=== PATIENT | female | born 2000 | race Asian ===

== ENCOUNTER 2022-06-15 14:33 | Emergency (ER) | payer OTHER ==
[~2022-06-15] VITALS: Ht 162.6 cm; Wt 115.3 kg
[2022-06-15 17:14] LABS: BASO # 0.1 10^3/uL (0.0-0.2); BASO % 0.5 % (0.0-1.0); EOS # 0.6 10^3/uL (0.0-0.5); EOS % 4.7 % (0.0-3.0); HEMATOCRIT 41.5 % (36.0-47.0); HEMOGLOBIN 13.7 g/dl (12.0-15.5); LYMPH # 2.2 10^3/uL (1.5-5.0); LYMPH % 18.7 % (24.0-44.0); MEAN CORPUSCULAR HEMOGLOBIN 28.4 pg (27.0-33.0); MEAN CORPUSCULAR VOLUME 86.1 fl (80.0-96.0); MONO # 0.8 10^3/uL (0.0-0.8); MONO % 6.5 % (2.0-8.0); NEUTROPHILS # 8.1 10^3/uL (1.5-8.5); NEUTROPHILS % 69.3 % (36.0-66.0); PLATELET COUNT, AUTOMATED 341 10^3/uL (150-450); RED BLOOD COUNT 4.82 10^6/uL (4.00-5.40); WHITE BLOOD COUNT 11.7 10^3/uL (4.0-10.0)
[2022-06-15 17:41] LABS: ALBUMIN 3.6 G/DL (3.2-5.2); ALKALINE PHOSPHATASE 77 U/L (46-116); ALT/SGPT 38 U/L (7.0-40); AST/SGOT 40 U/L (<34); BILIRUBIN,TOTAL 0.4 MG/DL (0.3-1.2); BLOOD UREA NITROGEN 11 MG/DL (9-23); CALCIUM LEVEL 8.7 MG/DL (8.5-10.1); CARBON DIOXIDE LEVEL 26 MMOL/L (20-31); CHLORIDE LEVEL 102 MMOL/L (98-107); CREATININE FOR GFR 0.59 MG/DL (0.55-1.30); GLOMERULAR FILTRATION RATE > 60.0 (>60); GLUCOSE, FASTING 79 MG/DL (60-100); POTASSIUM SERUM 3.9 MMOL/L (3.5-5.1); SODIUM LEVEL 137 MMOL/L (136-145); TOTAL PROTEIN 7.9 G/DL (5.7-8.2)
[2022-06-15] MEDS ORDERED: LEVOTAB10 PO (19:05)
[2022-06-15] MEDS ORDERED: FLON1SPR NARES (19:05)
[2022-06-15 19:16] VITALS: BP 144/96
== END 2022-06-15 19:18 | disposition home or self-care (01) ==
LOC: M ED 14:33
DX: J45.909 Unspecified asthma, uncomplicated (principal); R09.82 Postnasal drip; Z79.899 Other long term (current) drug therapy

== ENCOUNTER 2022-07-14 00:10 | Emergency (ER) | payer OTHER ==
[~2022-07-14] VITALS: Ht 167.6 cm; Wt 117.0 kg
[~2022-07-14 00:10] MED LIST: FLON1SPR NARES; LEVOTAB10 PO
[2022-07-14] MEDS ORDERED: diazePAM 10MG/2ML SYRINGE IM ONE (05:10)
[2022-07-14] MEDS ORDERED: CYCL5TAB PO (07:00)
[2022-07-14 07:23] VITALS: BP 132/68
== END 2022-07-14 07:18 | disposition home or self-care (01) ==
LOC: M ED 00:10
DX: M62.830 Muscle spasm of back (principal); J45.909 Unspecified asthma, uncomplicated; V49.40XA Driver injured in collision with unspecified motor vehicles in traffic accident, initial encounter; Z79.899 Other long term (current) drug therapy; Z79.02 Long term (current) use of antithrombotics/antiplatelets
CPT/HCPCS: 72072; 72110; 72125; 96372; 99284; J3360

== ENCOUNTER 2022-07-25 06:27 | Emergency (ER) | payer OTHER ==
[~2022-07-25] VITALS: Ht 167.6 cm; Wt 115.9 kg
[~2022-07-25 06:27] MED LIST changes: +CYCL5TAB PO
[2022-07-25] MEDS ORDERED: predniSONE 20 MG TAB PO ONE (07:05)
[2022-07-25] MEDS ORDERED: METH-1165 PO (07:07)
[2022-07-25] MEDS ORDERED: PRED10TA2 PO (07:07)
[2022-07-25 07:50] VITALS: BP 136/90
== END 2022-07-25 07:50 | disposition home or self-care (01) ==
LOC: M ED 06:27
DX: M54.12 Radiculopathy, cervical region (principal); M54.16 Radiculopathy, lumbar region; E28.2 Polycystic ovarian syndrome; J45.909 Unspecified asthma, uncomplicated; Z79.52 Long term (current) use of systemic steroids; Z79.899 Other long term (current) drug therapy
CPT/HCPCS: 99283; J7512

== ENCOUNTER → 2022-08-23 | Outpatient (CLI) | payer OTHER ==
[~2022-08-23] MED LIST changes: +METH-1165 PO; +PRED10TA2 PO
[2022-08-23 08:18] LABS: BASO # 0.1 10^3/uL (0.0-0.2); BASO % 0.4 % (0.0-1.0); EOS # 0.4 10^3/uL (0.0-0.5); EOS % 3.5 % (0.0-3.0); HEMATOCRIT 41.9 % (36.0-47.0); HEMOGLOBIN 13.9 g/dl (12.0-15.5); LYMPH # 2.6 10^3/uL (1.5-5.0); LYMPH % 21.1 % (24.0-44.0); MEAN CORPUSCULAR HEMOGLOBIN 28.4 pg (27.0-33.0); MEAN CORPUSCULAR HGB CONC 33.2 g/dl (32.0-36.5); MEAN CORPUSCULAR VOLUME 85.7 fl (80.0-96.0); MONO # 0.8 10^3/uL (0.0-0.8); MONO % 6.7 % (2.0-8.0); NEUTROPHILS # 8.3 10^3/uL (1.5-8.5); NEUTROPHILS % 67.8 % (36.0-66.0); PLATELET COUNT, AUTOMATED 374 10^3/uL (150-450); RED BLOOD COUNT 4.89 10^6/uL (4.00-5.40); WHITE BLOOD COUNT 12.2 10^3/uL (4.0-10.0)
[2022-08-23 08:46] LABS: ALBUMIN 3.9 G/DL (3.2-5.2); ALKALINE PHOSPHATASE 81 U/L (46-116); ALT/SGPT 41 U/L (7.0-40); AST/SGOT 27 U/L (<34); BILIRUBIN,TOTAL 0.4 MG/DL (0.3-1.2); BLOOD UREA NITROGEN 10 MG/DL (9-23); CALCIUM LEVEL 9.1 MG/DL (8.5-10.1); CARBON DIOXIDE LEVEL 28 MMOL/L (20-31); CHLORIDE LEVEL 103 MMOL/L (98-107); CHOLESTEROL LEVEL 181 MG/DL (<200); CHOLESTEROL RISK RATIO 4.44 (<5); CREATININE FOR GFR 0.66 MG/DL (0.55-1.30); GLOMERULAR FILTRATION RATE > 60.0 (>60); GLUCOSE, FASTING 81 MG/DL (60-100); HDL CHOLESTEROL 40.7 MG/DL (>40); LDL CHOLESTEROL 116.9 MG/DL (<100); NON-HDL-C 140.3 MG/DL; POTASSIUM SERUM 3.8 MMOL/L (3.5-5.1); SODIUM LEVEL 136 MMOL/L (136-145); TOTAL PROTEIN 7.9 G/DL (5.7-8.2); TRIGLYCERIDES LEVEL 117 MG/DL (<150)
[2022-08-23 08:47] LABS: THYROID STIMULATING HORMONE 1.349 uIU/ML (0.55-4.78)
[2022-08-23 08:48] LABS: FOLLICLE STIMULATING HORMONE 6.2 mIU/ML; FREE T4 1.21 NG/DL (0.89-1.76); LUTEINIZING HORMONE 6.4 mIU/ML
[2022-08-23 09:23] LABS: HEMOGLOBIN A1c 5.6 % (4.0-6.0)
[2022-08-24 18:07] LABS: TESTOSTERONE FREE (DIRECT) 5.3 pg/mL (0.0-4.2)
== END ==
LOC: M LAB 07:34
PROVIDERS: ATTEND Registered Nurse
DX: E28.2 Polycystic ovarian syndrome (principal)

== ENCOUNTER → 2022-10-30 | Outpatient (REF) | payer OTHER ==
[2022-10-30 20:13] LABS: GC DNA AMPLIFICATION NEGATIVE (NEGATIVE)
== END ==
LOC: M LAB REF 17:07
PROVIDERS: ATTEND Registered Nurse
DX: Z11.3 Encounter for screening for infections with a predominantly sexual mode of transmission (principal)

== ENCOUNTER → 2022-12-25 | Outpatient (REF) | payer OTHER | LOC: M LAB REF 17:00 | PROVIDERS: ATTEND Nurse Practitioner Family | DX: N76.0 Acute vaginitis (principal); Z30.432 Encounter for removal of intrauterine contraceptive device ==

== ENCOUNTER → 2023-01-28 | Outpatient (REF) ==
[2023-01-28 16:05] LABS: RSV AMPLIFICATION NEGATIVE (NEGATIVE)
== END ==
LOC: M EMP 14:49
PROVIDERS: ATTEND Family Medicine
DX: Z11.52 Encounter for screening for COVID-19 (principal)

== ENCOUNTER → 2023-01-31 | Outpatient (CLI) | payer OTHER | LOC: M WHC 14:12 | PROVIDERS: ATTEND Registered Nurse | DX: R10.2 Pelvic and perineal pain (principal) ==

== ENCOUNTER → 2023-01-31 | Outpatient (CLI) | payer OTHER ==
[2023-01-31 07:10] LABS: BASO # 0.1 10^3/uL (0.0-0.2); BASO % 0.5 % (0.0-1.0); EOS # 0.2 10^3/uL (0.0-0.5); EOS % 1.7 % (0.0-3.0); HEMATOCRIT 41.9 % (36.0-47.0); HEMOGLOBIN 13.7 g/dl (12.0-15.5); LYMPH # 2.6 10^3/uL (1.5-5.0); LYMPH % 20.6 % (24.0-44.0); MEAN CORPUSCULAR HEMOGLOBIN 28.1 pg (27.0-33.0); MEAN CORPUSCULAR HGB CONC 32.7 g/dl (32.0-36.5); MEAN CORPUSCULAR VOLUME 85.9 fl (80.0-96.0); MONO # 0.9 10^3/uL (0.0-0.8); MONO % 7.4 % (2.0-8.0); NEUTROPHILS # 8.8 10^3/uL (1.5-8.5); NEUTROPHILS % 69.6 % (36.0-66.0); PLATELET COUNT, AUTOMATED 359 10^3/uL (150-450); RED BLOOD COUNT 4.88 10^6/uL (4.00-5.40); WHITE BLOOD COUNT 12.7 10^3/uL (4.0-10.0)
[2023-01-31 07:37] LABS: ALKALINE PHOSPHATASE 89 U/L (46-116); ALT/SGPT 38 U/L (7.0-40); AST/SGOT 26 U/L (<34); BILIRUBIN,TOTAL 0.4 MG/DL (0.3-1.2); BLOOD UREA NITROGEN 15 MG/DL (9-23); CALCIUM LEVEL 8.9 MG/DL (8.5-10.1); CARBON DIOXIDE LEVEL 30 MMOL/L (20-31); CHLORIDE LEVEL 103 MMOL/L (98-107); CREATININE FOR GFR 0.74 MG/DL (0.55-1.30); GLOMERULAR FILTRATION RATE > 60.0 (>60); GLUCOSE, FASTING 94 MG/DL (60-100); POTASSIUM SERUM 4.1 MMOL/L (3.5-5.1); SODIUM LEVEL 139 MMOL/L (136-145); TOTAL PROTEIN 8.1 G/DL (5.7-8.2)
[2023-01-31 07:40] LABS: HCG, SERUM QUALITATIVE NEGATIVE (NEGATIVE)
== END ==
LOC: M LAB 06:33
PROVIDERS: ATTEND Registered Nurse
DX: R10.2 Pelvic and perineal pain (principal)

== ENCOUNTER → 2023-04-08 | Outpatient (CLI) | payer OTHER ==
[2023-04-08 07:15] LABS: APPEARANCE, URINE CLEAR (CLEAR); BACTERIA, URINE AUTO NEGATIVE (NEGATIVE); BILIRUBIN, URINE AUTO NEGATIVE (NEGATIVE); BLOOD, URINE BLOOD NEGATIVE (NEGATIVE); COLOR, URINE YELLOW (YELLOW); GLUCOSE, URINE (UA) AUTO NEGATIVE (NEGATIVE); KETONE, URINE AUTO NEGATIVE (NEGATIVE); LEUKOCYTE ESTERASE, URINE AUTO NEGATIVE (NEGATIVE); MUCUS, URINE SMALL (NEGATIVE); NITRITE, URINE AUTO NEGATIVE (NEGATIVE); PROTEIN, URINE AUTO NEGATIVE (NEGATIVE); RBC, URINE AUTO 0 /HPF (0-3); SPECIFIC GRAVITY URINE AUTO 1.029 (1.002-1.035); SQUAMOUS EPITHELIAL CELL UR AU 4 /HPF (0-6); WBC, URINE AUTO 1 /HPF (0-3)
[2023-04-08 07:17] LABS: BASO % 0.3 % (0.0-1.0); EOS # 0.3 10^3/uL (0.0-0.5); EOS % 2.4 % (0.0-3.0); HEMATOCRIT 39.9 % (36.0-47.0); LYMPH # 2.8 10^3/uL (1.5-5.0); LYMPH % 21.7 % (24.0-44.0); MEAN CORPUSCULAR HEMOGLOBIN 28.1 pg (27.0-33.0); MEAN CORPUSCULAR HGB CONC 32.6 g/dl (32.0-36.5); MEAN CORPUSCULAR VOLUME 86.4 fl (80.0-96.0); MONO # 1.2 10^3/uL (0.0-0.8); NEUTROPHILS # 8.6 10^3/uL (1.5-8.5); NEUTROPHILS % 66.3 % (36.0-66.0); PLATELET COUNT, AUTOMATED 360 10^3/uL (150-450); RED BLOOD COUNT 4.62 10^6/uL (4.00-5.40); WHITE BLOOD COUNT 12.9 10^3/uL (4.0-10.0)
[2023-04-08 07:43] LABS: IRON (FE) 24 UG/DL (50-170); TOTAL IRON BINDING CAPACITY 301 UG/DL (250-425)
[2023-04-08 07:44] LABS: CPK CREATINE PHOSPHOKINASE 143 U/L (34-145)
[2023-04-08 07:55] LABS: ALBUMIN 3.7 G/DL (3.2-5.2); ALKALINE PHOSPHATASE 78 U/L (46-116); ALT/SGPT 25 U/L (7.0-40); AST/SGOT 18 U/L (<34); BILIRUBIN,TOTAL 0.2 MG/DL (0.3-1.2); BLOOD UREA NITROGEN 12 MG/DL (9-23); CALCIUM LEVEL 8.8 MG/DL (8.5-10.1); CARBON DIOXIDE LEVEL 30 MMOL/L (20-31); CHLORIDE LEVEL 102 MMOL/L (98-107); CREATININE FOR GFR 0.72 MG/DL (0.55-1.30); FERRITIN 77.7 NG/ML (7.3-270.7); FREE T3 3.4 PG/ML (2.3-4.2); FREE T4 1.29 NG/DL (0.89-1.76); GLOMERULAR FILTRATION RATE > 60.0 (>60); GLUCOSE, FASTING 93 MG/DL (60-100); PHOSPHORUS LEVEL 3.4 MG/DL (2.5-4.9); POTASSIUM SERUM 3.9 MMOL/L (3.5-5.1); SODIUM LEVEL 137 MMOL/L (136-145); THYROID PEROXIDASE ANTIBODY < 28.0 U/ML (<60.0); TOTAL 25(OH) VITAMIN D 14.7 NG/ML (20.0-100.0); TOTAL PROTEIN 7.7 G/DL (5.7-8.2)
== END ==
LOC: M LAB 06:27
PROVIDERS: ATTEND Nurse Practitioner Family
DX: R53.83 Other fatigue (principal)

== ENCOUNTER 2023-04-16 08:27 | Emergency (ER) | payer OTHER ==
[~2023-04-16] VITALS: Ht 170.2 cm; Wt 105.0 kg
[2023-04-16] MEDS ORDERED: MULT1TAB8 PO (08:50)
[2023-04-16] MEDS ORDERED: ADDE1TAB14 PO (08:50)
[2023-04-16 09:53] LABS: RSV AMPLIFICATION NEGATIVE (NEGATIVE)
[2023-04-16] MEDS ORDERED: ONDANSETRON 4MG 2ML VIAL IV ONE (11:35)
[2023-04-16] MEDS ORDERED: NS 1,000 ML IV ONE (11:35)
[2023-04-16] MEDS ORDERED: KETOROLAC 30 MG/ML 1ML VIAL IV ONE (11:35)
[2023-04-16 12:30] LABS: BASO % 0.3 % (0.0-1.0); EOS # 0.1 10^3/uL (0.0-0.5); HEMATOCRIT 40.4 % (36.0-47.0); HEMOGLOBIN 13.2 g/dl (12.0-15.5); LYMPH # 2.3 10^3/uL (1.5-5.0); LYMPH % 18.1 % (24.0-44.0); MEAN CORPUSCULAR HGB CONC 32.7 g/dl (32.0-36.5); MEAN CORPUSCULAR VOLUME 85.6 fl (80.0-96.0); MONO # 1.1 10^3/uL (0.0-0.8); MONO % 8.4 % (2.0-8.0); NEUTROPHILS # 9.1 10^3/uL (1.5-8.5); PLATELET COUNT, AUTOMATED 334 10^3/uL (150-450); RED BLOOD COUNT 4.72 10^6/uL (4.00-5.40); WHITE BLOOD COUNT 12.6 10^3/uL (4.0-10.0)
[2023-04-16] MEDS ORDERED: ISOVUE-370 76% 100ML VIAL As Ordered ONE (12:37)
[2023-04-16 12:42] LABS: INR 1.27; PROTHROMBIN TIME 15.5 SECONDS (12.5-14.5)
[2023-04-16 12:45] LABS: ALBUMIN 3.8 G/DL (3.2-5.2); BILIRUBIN,DIRECT 0.2 MG/DL (<0.4); BILIRUBIN,TOTAL 0.6 MG/DL (0.3-1.2)
[2023-04-16 14:52] VITALS: BP 101/65; TEMP 97.8; O2SAT 97
== END 2023-04-16 14:55 | disposition home or self-care (01) ==
LOC: M ED 08:27
DX: K62.5 Hemorrhage of anus and rectum (principal); J45.909 Unspecified asthma, uncomplicated; F90.9 Attention-deficit hyperactivity disorder, unspecified type; Z79.810 Long term (current) use of selective estrogen receptor modulators (SERMs); Z79.899 Other long term (current) drug therapy
CPT/HCPCS: 74177; 80047; 80076; 81001; 83690; 84702; 85025; 85610; 85730; 86850; 86900; 86901; 87086; 87631; 96361; 96374; 96375; 99284; J1885; J2405; Q9967

== ENCOUNTER → 2023-04-17 | Outpatient (REF) | payer OTHER ==
[~2023-04-17] MED LIST changes: +ADDE1TAB14 PO; +MULT1TAB8 PO
== END ==
LOC: M LAB REF 12:13
PROVIDERS: ATTEND Registered Nurse
DX: R19.7 Diarrhea, unspecified (principal)

== ENCOUNTER → 2023-04-18 | Outpatient (CLI) | payer OTHER ==
[2023-04-19 13:08] LABS: TISSUE TRANSGLUTAMINASE IgA <2 U/mL (0-3); TISSUE TRANSGLUTAMINASE IgG 2 U/mL (0-5)
== END ==
LOC: M LAB 11:31
PROVIDERS: ATTEND Registered Nurse
DX: R19.7 Diarrhea, unspecified (principal)

== ENCOUNTER → 2023-04-23 | Outpatient (REF) | LOC: M EMP 09:58 | PROVIDERS: ATTEND Family Medicine | DX: Z11.52 Encounter for screening for COVID-19 (principal) ==

== ENCOUNTER → 2023-06-12 | Outpatient (CLI) | payer OTHER ==
[2023-06-12 16:37] LABS: HIV 1&2 SCREEN NEGATIVE (NEGATIVE)
[2023-06-12 16:46] LABS: HEPATITIS C VIRUS ABY INDEX 0.05 INDEX (<0.8)
[2023-06-12 16:47] LABS: HEPATITIS B CORE ANTIBODY IGM NEGATIVE (NEGATIVE)
== END ==
LOC: M PLALAB 14:42
PROVIDERS: ATTEND Nurse Practitioner Family
DX: Z12.4 Encounter for screening for malignant neoplasm of cervix (principal); Z11.3 Encounter for screening for infections with a predominantly sexual mode of transmission
CPT/HCPCS: 36415; 86705; 86780; 86803; 87340; 87389; 87624; G0123

== ENCOUNTER → 2023-08-22 | Outpatient (CLI) | payer OTHER ==
[~2023-08-22] MED LIST changes: +ADDE10CA3 PO; +FERR325T3 PO; +INUL2TAB PO; +PROBCAP14 PO; +VITA500045 PO
[2023-08-22 09:46] LABS: BASO # 0.1 10^3/uL (0.0-0.2); BASO % 0.6 % (0.0-1.0); EOS # 0.3 10^3/uL (0.0-0.5); HEMATOCRIT 38.7 % (36.0-47.0); HEMOGLOBIN 12.8 g/dl (12.0-15.5); LYMPH # 2.9 10^3/uL (1.5-5.0); LYMPH % 25.8 % (24.0-44.0); MEAN CORPUSCULAR HGB CONC 33.1 g/dl (32.0-36.5); MEAN CORPUSCULAR VOLUME 87.6 fl (80.0-96.0); MONO # 0.9 10^3/uL (0.0-0.8); MONO % 7.7 % (2.0-8.0); NEUTROPHILS # 7.1 10^3/uL (1.5-8.5); NEUTROPHILS % 62.7 % (36.0-66.0); PLATELET COUNT, AUTOMATED 337 10^3/uL (150-450); RED BLOOD COUNT 4.42 10^6/uL (4.00-5.40); WHITE BLOOD COUNT 11.4 10^3/uL (4.0-10.0)
[2023-08-22 10:08] LABS: ALBUMIN 3.7 G/DL (3.2-5.2); ALKALINE PHOSPHATASE 70 U/L (46-116); ALT/SGPT 23 U/L (7.0-40); AST/SGOT 22 U/L (<34); BILIRUBIN,TOTAL 0.4 MG/DL (0.3-1.2); BLOOD UREA NITROGEN 12 MG/DL (9-23); CALCIUM LEVEL 8.5 MG/DL (8.5-10.1); CARBON DIOXIDE LEVEL 29 MMOL/L (20-31); CHLORIDE LEVEL 105 MMOL/L (98-107); CREATININE FOR GFR 0.72 MG/DL (0.55-1.30); GLOMERULAR FILTRATION RATE > 60.0 (>60); GLUCOSE, FASTING 88 MG/DL (60-100); POTASSIUM SERUM 4.3 MMOL/L (3.5-5.1); SODIUM LEVEL 138 MMOL/L (136-145); TOTAL PROTEIN 7.2 G/DL (5.7-8.2)
== END ==
LOC: M LAB 08:49
PROVIDERS: ATTEND Registered Nurse
DX: R19.7 Diarrhea, unspecified (principal)

== ENCOUNTER 2023-08-23 07:08 | Emergency (ER) | payer OTHER ==
[~2023-08-23] VITALS: Ht 170.2 cm; Wt 104.5 kg
[~2023-08-23 07:08] MED LIST changes: -ADDE10CA3 PO; -FERR325T3 PO; -INUL2TAB PO; -PROBCAP14 PO; -VITA500045 PO
[2023-08-23 07:58] LABS: BASO # 0.1 10^3/uL (0.0-0.2); BASO % 0.5 % (0.0-1.0); EOS # 0.2 10^3/uL (0.0-0.5); HEMATOCRIT 40.3 % (36.0-47.0); HEMOGLOBIN 13.3 g/dl (12.0-15.5); LYMPH # 2.8 10^3/uL (1.5-5.0); LYMPH % 24.8 % (24.0-44.0); MEAN CORPUSCULAR HEMOGLOBIN 28.3 pg (27.0-33.0); MEAN CORPUSCULAR VOLUME 85.7 fl (80.0-96.0); MONO # 0.9 10^3/uL (0.0-0.8); MONO % 7.5 % (2.0-8.0); NEUTROPHILS # 7.4 10^3/uL (1.5-8.5); PLATELET COUNT, AUTOMATED 348 10^3/uL (150-450); WHITE BLOOD COUNT 11.3 10^3/uL (4.0-10.0)
[2023-08-23 08:21] LABS: BLOOD UREA NITROGEN 12 MG/DL (9-23); CARBON DIOXIDE LEVEL 28 MMOL/L (20-31); CHLORIDE LEVEL 104 MMOL/L (98-107); CREATININE FOR GFR 0.73 MG/DL (0.55-1.30); GLOMERULAR FILTRATION RATE > 60.0 (>60); GLUCOSE, FASTING 94 MG/DL (60-100); POTASSIUM SERUM 4.1 MMOL/L (3.5-5.1); SODIUM LEVEL 138 MMOL/L (136-145)
[2023-08-23 08:23] LABS: HCG, SERUM QUALITATIVE NEGATIVE (NEGATIVE); THYROID STIMULATING HORMONE 2.327 uIU/ML (0.55-4.78)
[2023-08-23] MEDS: KETOROLAC 30 MG/ML 1ML VIAL IV ONE (08:42)
[2023-08-23] MEDS: NS 1,000 ML IV ONE (08:53)
[2023-08-23 09:04] LABS: MAGNESIUM LEVEL 1.6 MG/DL (1.8-2.4)
[2023-08-23] MEDS ORDERED: INUL2TAB PO (09:16)
[2023-08-23] MEDS ORDERED: ADDE10CA3 PO (09:16)
[2023-08-23] MEDS ORDERED: VITA500045 PO (09:16)
[2023-08-23] MEDS ORDERED: FERR325T3 PO (09:16)
[2023-08-23] MEDS ORDERED: PROBCAP14 PO (09:16)
[2023-08-23] MEDS ORDERED: HOME MED LIST COMPLETE! XX SCH (09:20)
[2023-08-23] MEDS: MAGNESIUM OXIDE 400MG TAB (MAG-OX) PO ONE (09:52)
[2023-08-23 11:59] VITALS: BP 140/77; TEMP 97.2; O2SAT 98
== END 2023-08-23 12:02 | disposition home or self-care (01) ==
LOC: M ED 07:08
DX: R55 Syncope and collapse (principal); F90.9 Attention-deficit hyperactivity disorder, unspecified type; D64.9 Anemia, unspecified; J45.909 Unspecified asthma, uncomplicated; E28.2 Polycystic ovarian syndrome
CPT/HCPCS: 80048; 83735; 84443; 84703; 85025; 93005; 94760; 96374; 99284; J1885

== ENCOUNTER 2023-09-03 18:27 | Emergency (ER) | payer OTHER ==
[~2023-09-03] VITALS: Ht 170.2 cm; Wt 104.2 kg
[~2023-09-03 18:27] MED LIST changes: +ADDE10CA3 PO; +FERR325T3 PO; +INUL2TAB PO; +PROBCAP14 PO; +VITA500045 PO
[2023-09-03 22:33] VITALS: BP 130/92; TEMP 96.9; O2SAT 99
== END 2023-09-03 22:42 | disposition home or self-care (01) ==
LOC: M ED 18:27
DX: S90.31XA Contusion of right foot, initial encounter (principal); W20.8XXA Other cause of strike by thrown, projected or falling object, initial encounter; Y92.410 Unspecified street and highway as the place of occurrence of the external cause; Y93.9 Activity, unspecified; Y99.9 Unspecified external cause status; Z79.899 Other long term (current) drug therapy

== ENCOUNTER 2023-10-15 00:31 | Emergency (ER) | payer OTHER ==
[~2023-10-15] VITALS: Ht 167.6 cm; Wt 106.9 kg
[2023-10-15 02:49] VITALS: BP 142/93; TEMP 98.5; O2SAT 99
[2023-10-15] MEDS: ONDANSETRON 4MG ORAL DISINTEGRATING TAB PO ONE (05:56)
== END 2023-10-15 06:45 | disposition home or self-care (01) ==
LOC: M ED 00:31
DX: H61.23 Impacted cerumen, bilateral (principal); F10.10 Alcohol abuse, uncomplicated; E28.2 Polycystic ovarian syndrome; Z79.899 Other long term (current) drug therapy

== ENCOUNTER → 2024-01-14 | Outpatient (CLI) | payer OTHER | LOC: M RAD 16:13 | PROVIDERS: ATTEND Registered Nurse | DX: S06.0X0A Concussion without loss of consciousness, initial encounter (principal); X58.XXXA Exposure to other specified factors, initial encounter; Y92.9 Unspecified place or not applicable ==

== ENCOUNTER → 2024-01-31 | Outpatient (CLI) | payer OTHER ==
[2024-01-31 17:24] LABS: BASO # 0.1 10^3/uL (0.0-0.2); BASO % 0.7 % (0.0-1.0); EOS # 0.4 10^3/uL (0.0-0.5); EOS % 3.8 % (0.0-3.0); HEMATOCRIT 39.6 % (36.0-47.0); HEMOGLOBIN 13.1 g/dl (12.0-15.5); LYMPH # 2.4 10^3/uL (1.5-5.0); LYMPH % 22.9 % (24.0-44.0); MEAN CORPUSCULAR HEMOGLOBIN 28.7 pg (27.0-33.0); MEAN CORPUSCULAR HGB CONC 33.1 g/dl (32.0-36.5); MEAN CORPUSCULAR VOLUME 86.8 fl (80.0-96.0); MONO # 0.7 10^3/uL (0.0-0.8); MONO % 6.8 % (2.0-8.0); NEUTROPHILS # 6.9 10^3/uL (1.5-8.5); NEUTROPHILS % 65.5 % (36.0-66.0); PLATELET COUNT, AUTOMATED 345 10^3/uL (150-450); RED BLOOD COUNT 4.56 10^6/uL (4.00-5.40); WHITE BLOOD COUNT 10.5 10^3/uL (4.0-10.0)
[2024-01-31 18:00] LABS: IRON (FE) 59 UG/DL (50-170); PERCENT SATURATION 19.8 % (13.2-45.0); TOTAL IRON BINDING CAPACITY 298 UG/DL (250-425)
[2024-01-31 18:02] LABS: FERRITIN 76.8 NG/ML (7.3-270.7); FOLATE > 24.0 NG/ML (>5.4); TOTAL 25(OH) VITAMIN D 32.4 NG/ML (20.0-100.0)
[2024-01-31 18:03] LABS: VITAMIN B12 LEVEL 1251 PG/ML (211-911)
== END ==
LOC: M LAB 16:30
PROVIDERS: ATTEND Registered Nurse
DX: E61.1 Iron deficiency (principal); E55.9 Vitamin D deficiency, unspecified

== ENCOUNTER 2024-02-23 14:20 | Emergency (ER) | payer OTHER ==
[~2024-02-23] VITALS: Ht 167.6 cm; Wt 105.9 kg
[2024-02-23] MEDS ORDERED: ATIV1TAB10 (14:36)
[2024-02-23] MEDS ORDERED: CELE0.09 (14:36)
[2024-02-23] MEDS ORDERED: METH4PACK (14:36)
[2024-02-23] MEDS: ACETAMINOPHEN 500 MG TAB PO ONE (15:40)
[2024-02-23] MEDS: KETOROLAC 30 MG/ML 1ML VIAL IM ONE (15:40)
[2024-02-23 16:23] VITALS: BP 118/56; O2SAT 99
[2024-02-23] MEDS: GABAPENTIN 100 MG CAP PO ONE (16:29)
[2024-02-23] MEDS: LIDOCAINE 5% (LIDODERM) PATCH TD ONE (16:30)
[2024-02-23] MEDS ORDERED: GABA-1171 PO (16:45)
[2024-02-23 16:53] VITALS: TEMP 98.1
== END 2024-02-23 16:54 | disposition home or self-care (01) ==
LOC: M ED 14:20
DX: M51.27 Other intervertebral disc displacement, lumbosacral region (principal); M54.17 Radiculopathy, lumbosacral region; F90.9 Attention-deficit hyperactivity disorder, unspecified type; F17.200 Nicotine dependence, unspecified, uncomplicated; F12.10 Cannabis abuse, uncomplicated; Z79.899 Other long term (current) drug therapy
CPT/HCPCS: 96372; 99283; J1885

== ENCOUNTER → 2024-05-20 | Outpatient (CLI) | payer OTHER ==
[~2024-05-20] MED LIST changes: +ATIV1TAB10; +CELE0.09; -CYCL5TAB PO; +CYCL5TAB4 PO; +GABA-1171 PO; +METH4PACK
[2024-05-20 09:47] LABS: HCG, SERUM QUALITATIVE NEGATIVE (NEGATIVE)
== END ==
LOC: M LAB 08:50
PROVIDERS: ATTEND Nurse Practitioner Family
DX: N91.1 Secondary amenorrhea (principal)

== ENCOUNTER → 2024-06-23 | Outpatient (CLI) | payer OTHER ==
[2024-06-23 15:30] LABS: BASO # 0.1 10^3/uL (0.0-0.2); BASO % 0.7 % (0.0-1.0); EOS # 0.6 10^3/uL (0.0-0.5); EOS % 7.9 % (0.0-3.0); HEMATOCRIT 38.8 % (36.0-47.0); HEMOGLOBIN 12.9 g/dl (12.0-15.5); LYMPH # 1.9 10^3/uL (1.5-5.0); LYMPH % 24.9 % (24.0-44.0); MEAN CORPUSCULAR HEMOGLOBIN 29.3 pg (27.0-33.0); MEAN CORPUSCULAR HGB CONC 33.2 g/dl (32.0-36.5); MEAN CORPUSCULAR VOLUME 88.2 fl (80.0-96.0); MONO # 0.9 10^3/uL (0.0-0.8); NEUTROPHILS # 4.1 10^3/uL (1.5-8.5); NEUTROPHILS % 54.4 % (36.0-66.0); PLATELET COUNT, AUTOMATED 314 10^3/uL (150-450); WHITE BLOOD COUNT 7.6 10^3/uL (4.0-10.0)
[2024-06-23 16:06] LABS: ALBUMIN 3.5 G/DL (3.2-5.2); ALKALINE PHOSPHATASE 62 U/L (35-104); ALT/SGPT 26 U/L (7.0-40); AST/SGOT 22 U/L (<34); BILIRUBIN,TOTAL 0.2 MG/DL (0.3-1.2); BLOOD UREA NITROGEN 12 MG/DL (9-23); CALCIUM LEVEL 8.6 MG/DL (8.5-10.1); CARBON DIOXIDE LEVEL 29 MMOL/L (20-31); CHLORIDE LEVEL 107 MMOL/L (98-107); CREATININE FOR GFR 0.78 MG/DL (0.55-1.30); GLOMERULAR FILTRATION RATE > 60.0 (>60); GLUCOSE, FASTING 92 MG/DL (60-100); POTASSIUM SERUM 4.4 MMOL/L (3.5-5.1); SODIUM LEVEL 142 MMOL/L (136-145); TOTAL PROTEIN 7.1 G/DL (5.7-8.2)
== END ==
LOC: M LAB 14:25
PROVIDERS: ATTEND Nurse Practitioner Family
DX: J06.9 Acute upper respiratory infection, unspecified (principal)

== ENCOUNTER 2024-09-05 11:31 | Emergency (ER) | payer OTHER ==
[~2024-09-05] VITALS: Ht 170.2 cm; Wt 106.3 kg
[2024-09-05 12:08] LABS: BASO # 0.1 10^3/uL (0.0-0.2); BASO % 0.6 % (0.0-1.0); EOS # 0.4 10^3/uL (0.0-0.5); EOS % 4.2 % (0.0-3.0); LYMPH # 1.7 10^3/uL (1.5-5.0); LYMPH % 19.6 % (24.0-44.0); MEAN CORPUSCULAR HEMOGLOBIN 28.9 pg (27.0-33.0); MEAN CORPUSCULAR HGB CONC 33.3 g/dl (32.0-36.5); MEAN CORPUSCULAR VOLUME 86.8 fl (80.0-96.0); MONO # 0.9 10^3/uL (0.0-0.8); NEUTROPHILS # 5.6 10^3/uL (1.5-8.5); NEUTROPHILS % 65.4 % (36.0-66.0); PLATELET COUNT, AUTOMATED 318 10^3/uL (150-450); RED BLOOD COUNT 4.84 10^6/uL (4.00-5.40); WHITE BLOOD COUNT 8.6 10^3/uL (4.0-10.0)
[2024-09-05 12:32] LABS: LIPASE 29 U/L (12-53)
[2024-09-05 12:34] LABS: ALBUMIN 3.7 G/DL (3.2-5.2); ALKALINE PHOSPHATASE 67 U/L (35-104); ALT/SGPT 25 U/L (7.0-40); AST/SGOT 20 U/L (<34); BILIRUBIN,DIRECT < 0.1 MG/DL (<0.4); BILIRUBIN,TOTAL 0.3 MG/DL (0.3-1.2); BLOOD UREA NITROGEN 13 MG/DL (9-23); CALCIUM LEVEL 8.7 MG/DL (8.5-10.1); CARBON DIOXIDE LEVEL 28 MMOL/L (20-31); CHLORIDE LEVEL 104 MMOL/L (98-107); CREATININE FOR GFR 0.82 MG/DL (0.55-1.30); GLOMERULAR FILTRATION RATE > 90.0 (>60); GLUCOSE, FASTING 93 MG/DL (60-100); POTASSIUM SERUM 4.2 MMOL/L (3.5-5.1); SODIUM LEVEL 139 MMOL/L (136-145); TOTAL PROTEIN 7.5 G/DL (5.7-8.2)
[2024-09-05] MEDS: KETOROLAC 30 MG/ML 1ML VIAL IV ONE (12:40)
[2024-09-05] MEDS: ONDANSETRON 4MG 2ML VIAL IV ONE (12:40)
[2024-09-05 13:12] LABS: HCG, SERUM QUALITATIVE NEGATIVE (NEGATIVE)
[2024-09-05] MEDS ORDERED: ISOVUE-370 76% 100ML VIAL As Ordered ONE (13:16)
[2024-09-05] MEDS: NS 500 ML IV ONE (14:20)
[2024-09-05 14:39] VITALS: BP 120/67; TEMP 97.4
[2024-09-05 15:28] VITALS: O2SAT 98
[2024-09-05] MEDS: MORPHINE 4 MG/ML 1ML VIAL IV ONE (15:28)
[2024-09-05] MEDS: METOCLOPRAMIDE INJ 10MG/2ML VIAL IV ONE (15:28)
[2024-09-05] MEDS ORDERED: ONDA-282 PO (17:06)
[2024-09-05] MEDS ORDERED: PRED20TA PO (17:06)
== END 2024-09-05 17:54 | disposition home or self-care (01) ==
LOC: M ED 11:31
DX: K51.90 Ulcerative colitis, unspecified, without complications (principal); R11.2 Nausea with vomiting, unspecified; J45.909 Unspecified asthma, uncomplicated; E28.2 Polycystic ovarian syndrome; F17.200 Nicotine dependence, unspecified, uncomplicated; Z79.899 Other long term (current) drug therapy; Z79.83 Long term (current) use of bisphosphonates; Z79.52 Long term (current) use of systemic steroids
CPT/HCPCS: 36415; 74177; 80048; 80076; 83690; 84703; 85025; 87486; 87581; 87633; 87798; 96374; 96375; 99284; J1885; J2405; J2765; Q9967

== ENCOUNTER → 2025-02-15 | Outpatient (CLI) | payer OTHER ==
[~2025-02-15] MED LIST changes: +ERGO125013 PO; +ONDA-282 PO; +PRED20TA PO; +SUCR1SS PO; -VITA500045 PO
[2025-02-15 17:26] LABS: BASO # 0.1 10^3/uL (0.0-0.2); BASO % 0.6 % (0.0-1.0); EOS # 0.5 10^3/uL (0.0-0.5); EOS % 3.9 % (0.0-3.0); LYMPH # 2.3 10^3/uL (1.5-5.0); LYMPH % 17.1 % (24.0-44.0); MONO # 0.9 10^3/uL (0.0-0.8); MONO % 6.6 % (2.0-8.0); NEUTROPHILS # 9.5 10^3/uL (1.5-8.5); NEUTROPHILS % 71.5 % (36.0-66.0); PLATELET COUNT, AUTOMATED 333 10^3/uL (150-450)
[2025-02-15 18:15] LABS: ALT/SGPT 20 U/L (7.0-40); AST/SGOT 23 U/L (<34); CALCIUM LEVEL 8.9 MG/DL (8.5-10.1); CARBON DIOXIDE LEVEL 25 MMOL/L (20-31); CHLORIDE LEVEL 103 MMOL/L (98-107); CREATININE FOR GFR 0.74 MG/DL (0.55-1.30); GLOMERULAR FILTRATION RATE > 90.0 (>60); IRON (FE) 43 UG/DL (50-170); PERCENT SATURATION 14.7 % (13.2-45.0); POTASSIUM SERUM 4.1 MMOL/L (3.5-5.1); SODIUM LEVEL 138 MMOL/L (136-145)
[2025-02-15 18:17] LABS: TOTAL 25(OH) VITAMIN D 30.2 NG/ML (20.0-100.0)
[2025-02-15 18:22] LABS: HCG, SERUM QUALITATIVE POSITIVE (NEGATIVE)
== END ==
LOC: M LAB 15:37
PROVIDERS: ATTEND Registered Nurse
DX: E55.9 Vitamin D deficiency, unspecified (principal); E61.1 Iron deficiency; N91.2 Amenorrhea, unspecified

== ENCOUNTER → 2025-02-26 | Outpatient (CLI) | payer OTHER | LOC: M PLALAB 11:48 | PROVIDERS: ATTEND Advanced Practice Midwife | DX: O20.9 Hemorrhage in early pregnancy, unspecified (principal) ==

== ENCOUNTER 2025-03-03 16:20 | Day surgery (SDC) | payer OTHER ==
[~2025-03-03] VITALS: Ht 165.1 cm; Wt 101.6 kg
[2025-03-03 17:18] LABS: BASO # 0.1 10^3/uL (0.0-0.2); BASO % 0.8 % (0.0-1.0); EOS # 0.4 10^3/uL (0.0-0.5); EOS % 4.4 % (0.0-3.0); LYMPH # 2.4 10^3/uL (1.5-5.0); LYMPH % 26.4 % (24.0-44.0); MONO # 0.6 10^3/uL (0.0-0.8); MONO % 7.2 % (2.0-8.0); NEUTROPHILS # 5.5 10^3/uL (1.5-8.5); NEUTROPHILS % 60.9 % (36.0-66.0); PLATELET COUNT, AUTOMATED 353 10^3/uL (150-450)
[2025-03-03 17:39] LABS: CALCIUM LEVEL 8.4 MG/DL (8.5-10.1); CARBON DIOXIDE LEVEL 25 MMOL/L (20-31); CHLORIDE LEVEL 106 MMOL/L (98-107); CREATININE FOR GFR 0.77 MG/DL (0.55-1.30); GLOMERULAR FILTRATION RATE > 90.0 (>60); POTASSIUM SERUM 4.0 MMOL/L (3.5-5.1); SODIUM LEVEL 141 MMOL/L (136-145)
[2025-03-03 17:40] LABS: HCG, SERUM QUANTITATIVE 57.4 MIU/ML (<4.2)
[2025-03-03] MEDS: NS (Normal Saline) 0.9% 1,000 ML IV ONE (18:44)
[2025-03-03] MEDS: ACETAMINOPHEN *IV* 1,000 MG in IV 1 EA IV ONE (18:44)
[2025-03-03] MEDS: ONDANSETRON 4MG/2ML VIAL IV ONE (18:44)
[2025-03-03 20:24] LABS: KETONE, URINE AUTO RFX TRACE mg/dL (NEGATIVE); LEUKOCYTE ESTERASE UR AUTO RFX NEGATIVE (NEGATIVE); NITRITE, URINE AUTO RFX NEGATIVE (NEGATIVE); RBC, URINE AUTO RFX 1 /HPF (0-3); SQUAM EPITHELIAL CELL UR AURFX 5 /HPF (0-6); WBC, URINE AUTO RFX 1 /HPF (0-3)
[2025-03-03] MEDS ORDERED: ROCURONIUM BROMIDE 50MG/5ML VIAL As Ordered ONE (21:16)
[2025-03-03] MEDS ORDERED: LIDOCAINE 2% 100 MG/5 ML SDV (FOR ANES.) As Ordered ONE (21:16)
[2025-03-03] MEDS ORDERED: dexAMETHasone 4 MG/ML 1 ML VIAL As Ordered ONE (21:16)
[2025-03-03] MEDS ORDERED: ACETAMINOPHEN 1000MG/100ML IV BAG As Ordered ONE (21:16)
[2025-03-03] MEDS ORDERED: KETOROLAC 30 MG/ML 1 ML VIAL As Ordered ONE (21:16)
[2025-03-03] MEDS ORDERED: ONDANSETRON 4MG/2ML VIAL As Ordered ONE (21:16)
[2025-03-03] MEDS ORDERED: MIDAZOLAM INJ 2 MG/2 ML VIAL As Ordered ONE (21:16)
[2025-03-03] MEDS ORDERED: ADDE25CA PO (21:20)
[2025-03-03] MEDS ORDERED: MIDOTAB11 PO (21:20)
[2025-03-03] MEDS ORDERED: [UNRECOGNIZED DRUG - CODE] PO (21:20)
[2025-03-03] MEDS ORDERED: CHOL10007 PO (21:20)
[2025-03-03] MEDS ORDERED: HOME MED LIST COMPLETE! XX SCH (21:20)
[2025-03-03] MEDS ORDERED: SUGAMMADEX SODIUM 500 MG/5 ML VIAL As Ordered ONE (21:56)
[2025-03-03] MEDS: LR 1,000 ML IV SCH (22:25)
[2025-03-03] MEDS: ACETAMINOPHEN 500 MG TAB PO ONE (22:30)
[2025-03-03] MEDS: DOXYCYCLINE HYCLATE 100 MG TABLET PO ONE (22:41)
[2025-03-03 23:10] VITALS: BP 140/66; TEMP 97.6; O2SAT 97
[2025-03-03 23:40] VITALS: BP 128/77; TEMP 98.3; O2SAT 98
[2025-03-04 00:40] VITALS: BP 121/75; TEMP 97.7; O2SAT 97
[2025-03-04 01:40] VITALS: BP 105/61; TEMP 98.1; O2SAT 97
[2025-03-04 02:40] VITALS: BP 110/70; TEMP 97.3; O2SAT 97
[2025-03-04 03:40] VITALS: BP 115/62; TEMP 98.5; O2SAT 96
[2025-03-04 05:48] VITALS: BP 125/61; TEMP 97.7; O2SAT 97
[2025-03-04] MEDS ORDERED: ISOVUE-370 76% 100 ML VIAL As Ordered ONE (06:26)
[2025-03-04 07:06] LABS: BASO # 0.0 10^3/uL (0.0-0.2); BASO % 0.1 % (0.0-1.0); EOS # 0.0 10^3/uL (0.0-0.5); EOS % 0.0 % (0.0-3.0); LYMPH # 1.1 10^3/uL (1.5-5.0); LYMPH % 13.1 % (24.0-44.0); MONO # 0.2 10^3/uL (0.0-0.8); MONO % 2.4 % (2.0-8.0); NEUTROPHILS # 7.1 10^3/uL (1.5-8.5); NEUTROPHILS % 84.2 % (36.0-66.0); PLATELET COUNT, AUTOMATED 315 10^3/uL (150-450)
[2025-03-04 07:36] LABS: ALT/SGPT 14 U/L (7.0-40); AST/SGOT 18 U/L (<34); CALCIUM LEVEL 7.9 MG/DL (8.5-10.1); CARBON DIOXIDE LEVEL 22 MMOL/L (20-31); CHLORIDE LEVEL 106 MMOL/L (98-107); CREATININE FOR GFR 0.68 MG/DL (0.55-1.30); GLOMERULAR FILTRATION RATE > 90.0 (>60); POTASSIUM SERUM 4.5 MMOL/L (3.5-5.1); SODIUM LEVEL 138 MMOL/L (136-145)
[2025-03-04] MEDS ORDERED: DOXY-440 PO (09:41)
[2025-03-04] MEDS ORDERED: IBUP600T42 PO (09:41)
[2025-03-04] MEDS ORDERED: CYCL5TAB4 PO (09:41)
== END 2025-03-04 10:30 | disposition home or self-care (01) ==
LOC: M ED 16:20 → M SDC 21:04 → M OBS 22:52 → M SDC 03-04 10:30
PROVIDERS: ATTEND Specialist
DX: O03.37 Sepsis following incomplete spontaneous abortion (principal); O03.1 Delayed or excessive hemorrhage following incomplete spontaneous abortion; F17.200 Nicotine dependence, unspecified, uncomplicated; J45.909 Unspecified asthma, uncomplicated; E66.9 Obesity, unspecified
CPT/HCPCS: 36415; 59820; 74177; 76801; 80048; 80053; 81001; 84702; 85025; 86850; 86900; 86901; 88305; 96374; 96375; 99285; J0131; J1100; J1885; J2250; J2405; J3010; Q9967